=== PATIENT | male | born 1965 | race Caucasian/White ===

== ENCOUNTER 2020-06-14 10:16 | Emergency (ER) | payer OTHER ==
[~2020-06-14] VITALS: Ht 175.3 cm; Wt 95.5 kg
[2020-06-14] MEDS ORDERED: ASPIRIN 81 MG CHEW TABLET PO ONE (10:45)
[2020-06-14 11:01] LABS: BASO % 0.6 % (0.0-1.0); EOS # 0.1 10^3/uL (0.0-0.5); EOS % 1.2 % (0.0-3.0); HEMATOCRIT 48.9 % (42.0-52.0); HEMOGLOBIN 16.6 g/dl (13.5-17.5); LYMPH # 1.6 10^3/uL (1.5-5.0); MEAN CORPUSCULAR HEMOGLOBIN 31.5 pg (27.0-33.0); MEAN CORPUSCULAR HGB CONC 33.9 g/dl (32.0-36.5); MEAN CORPUSCULAR VOLUME 92.8 fl (80.0-96.0); MONO # 0.8 10^3/uL (0.0-0.8); MONO % 12.1 % (0.0-5.0); NEUTROPHILS # 3.9 10^3/uL (1.5-8.5); NEUTROPHILS % 60.8 % (36.0-66.0); PLATELET COUNT, AUTOMATED 287 10^3/uL (150-450); RED BLOOD COUNT 5.27 10^6/uL (4.30-6.10); WHITE BLOOD COUNT 6.4 10^3/uL (4.0-10.0)
[2020-06-14 11:17] LABS: INR 0.92; PROTHROMBIN TIME 12.5 SECONDS (12.5-14.3)
[2020-06-14 11:18] LABS: PARTIAL THROMBOPLASTIN TIME 32.2 SECONDS (24.2-38.5)
--- NOTE | 2020-06-14 11:18 | REP ---
INDICATION: CHEST PAIN. COMPARISON: None. TECHNIQUE: SINGLE PORTABLE AP VIEW OF THE CHEST WAS PERFORMED. FINDINGS: THERE IS NO ACUTE INFILTRATE OR PULMONARY EDEMA. LUNGS ARE CLEAR. HEART IS NOT SIGNIFICANTLY ENLARGED. MEDIASTINAL SILHOUETTE IS UNREMARKABLE. THE VISUALIZED OSSEOUS STRUCTURES ARE INTACT. IMPRESSION: NO ACUTE PULMONARY DISEASE. <Electronically signed by Doni Miles > 06/14/20 [id number]
[2020-06-14 11:37] LABS: ALBUMIN 3.8 GM/DL (3.2-5.2); ALT/SGPT 35 U/L (12-78); BILIRUBIN,DIRECT 0.1 MG/DL (0.0-0.2); BILIRUBIN,TOTAL 0.5 MG/DL (0.2-1.0); BLOOD UREA NITROGEN 17 MG/DL (7-18); CALCIUM LEVEL 9.1 MG/DL (8.5-10.1); CARBON DIOXIDE LEVEL 28 MEQ/L (21-32); CHLORIDE LEVEL 106 MEQ/L (98-107); CK-MB VALUE MASS 1.7 NG/ML (<3.6); CPK CREATINE PHOSPHOKINASE 140 U/L (39-308); CREATININE FOR GFR 1.02 MG/DL (0.70-1.30); FREE T4 1.07 NG/DL (0.76-1.46); GLOMERULAR FILTRATION RATE > 60.0 (>56); GLUCOSE, FASTING 94 MG/DL (70-100); LIPASE 170 U/L (73-393); MB/CK RELATIVE INDEX 1.21 (< OR =4); NT-PRO BNP 36 PG/ML (<125); POTASSIUM SERUM 4.2 MEQ/L (3.5-5.1); SODIUM LEVEL 139 MEQ/L (136-145); TOTAL PROTEIN 7.3 GM/DL (6.4-8.2); TROPONIN I < 0.02 NG/ML (< 0.10)
[2020-06-14] MEDS ORDERED: ISOVUE-370 76% 100ML VIAL As Ordered ONE (11:38)
--- NOTE | 2020-06-14 12:05 | REP ---
INDICATION: chest pain - wait bun/cr. COMPARISON: Portable chest performed earlier today. TECHNIQUE: CT of the chest with IV contrast, CT pulmonary angio protocol. FINDINGS: There are no emboli in the pulmonary trunk or central pulmonary arteries. There are no emboli in the pulmonary artery lobar segment branches. There are no infiltrates or pleural effusions. There is minor dependent atelectasis in the posterior lung wharton. The thoracic aorta is unremarkable. Cardiac size is normal. There is no mediastinal, hilar or axillary lymph node enlargement. No pericardial effusion. The visualized upper abdominal structures are unremarkable except for splenic calcified granulomas. IMPRESSION: There are no pulmonary emboli. Splenic calcified granulomas. Otherwise, negative CT study of the chest. <Electronically signed by Doni Lomeli > 06/14/20 [id number]
[2020-06-14 15:50] LABS: CK-MB VALUE MASS 1.3 NG/ML (<3.6); CPK CREATINE PHOSPHOKINASE 116 U/L (39-308); MB/CK RELATIVE INDEX 1.12 (< OR =4); TROPONIN I < 0.02 NG/ML (< 0.10)
[2020-06-14] MEDS ORDERED: ECOT81TA5 PO (16:13)
[2020-06-14 16:15] VITALS: BP 117/75
--- NOTE | 2020-06-14 18:16 | ECGEPIP ---
[facility] - ED Test Date: 2020-06-14 Pat Name: ROXI PEOPLES Department: Room: - Gender: Male Shipping Room Supervisor: alesia : 1965 Requested By: Evaristo Lombardi Order Number: [id number] Reading MD: Evaristo Lombardi Measurements Intervals [place] Rate: 62 P: 30 CA: 169 QRS: 39 QRSD: 113 T: 39 QT: 417 QTc: 424 Interpretive Statements SINUS RHYTHM MODERATE INTRAVENTRICULAR CONDUCTION DELAY NONSPECIFIC ST T WAVE CHANGES DELAYED R WAVE PROGRESSION NO PRIOR ECG FOR COMPARISON Electronically Signed on 06-14-2020 18:16:04 EST by Evaristo Lombardi
--- NOTE | 2020-06-14 19:32 | ECGEPIP ---
[facility] - ED Test Date: 2020-06-14 Pat Name: ROXI PEOPLES Department: Room: - Gender: Male Casting Operator: timmy : 1965 Requested By: Evaristo Lombardi Order Number: [id number] Reading MD: Evaristo Lombardi Measurements Intervals [place] Rate: 55 P: 32 MO: 185 QRS: 39 QRSD: 109 T: 46 QT: 447 QTc: 431 Interpretive Statements SINUS BRADYCARDIA DELAYED R WAVE PROGRESSION NONSPECIFIC ST T WAVE CHANGES 06/14/20 RATE DECREASED Electronically Signed on 06-14-2020 19:32:21 EST by Evaristo Lombardi
== END 2020-06-14 16:35 | disposition home or self-care (01) ==
LOC: M ED 10:16
DX: R07.89 Other chest pain (principal); R00.1 Bradycardia, unspecified
CPT/HCPCS: 71045; 71275; 80048; 80076; 82550; 82553; 83690; 83880; 84439; 84443; 85025; 85610; 85730; 93005; 93041; 94760; 99285; Q9967

== ENCOUNTER → 2020-07-10 | Outpatient (POV) | payer OTHER ==
[~2020-07-10] MED LIST: ECOT81TA5 PO
--- NOTE | 2020-07-11 15:36 | IRCOV ---
[facility] IR Consult Office Visit IR Consult Office Visit DATE: Jul 10, 2020 Patient agreed to this telephone consultation. I spent 30 minutes reviewing patient's records, imaging and talking to the patient. REASON FOR CONSULTATION/CHIEF COMPLAINT: Lower extremity swelling and discomfort. HISTORY OF PRESENT ILLNESS: 55-year-old male complains of left greater than right leg discomfort and pain. He states this is worse at the end of his shift for which he has to be on his feet all day. By the end of his shift, his left greater than right leg is swollen and incredibly painful to where he can't even walk to the car. He does use a compression stocking on the left leg which helps somewhat. He states the swelling goes down by the morning. He symptoms are relieved by leg elevation and rest. He is a nonsmoker. He denies calf claudication. He denies rest pain. He denies chest pain, shortness of breath, paroxysmal nocturnal dyspnea or orthopnea. ALLERGIES: Please see below. HOME MEDICATIONS: Please see below. PAST MEDICAL HISTORY: Varicose veins PAST SURGICAL HISTORY: Left inguinal hernia repair FAMILY HISTORY: Noncontributory SOCIAL HISTORY: Nonsmoker. Denies alcohol or drugs. REVIEW OF SYSTEMS: Otherwise negative. PHYSICAL EXAMINATION: No video on patient side. LABORATORY DATA: 06/14/2020 hemoglobin 16.6 hematocrit 48.9 WBC 6.4 platelets 287 sodium 139 potassium 4.2 BUN 17 creatinine 1.02 INR 0.9 Imaging: I personally reviewed the left lower extremity reflux ultrasound performed in February 2017. Dilated left greater saphenous vein with reflux. 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 This is amenable to EVLT therapy. We discussed the risks and benefits of the procedure and patient would like to proceed. We have scheduled the patient for left lower extremity EVLT therapy. Thank you for this referral. Cc Dr. Praneeth Fernando Allergies Coded Allergies: No Known Allergies (Unverified , 06/14/20) Home Medications Scheduled Aspirin (Ecotrin), 81 MG PO DAILY MARYSOL MONTOYA MD Jul 11, 2020 15:36
== END ==
LOC: M TMIRPOV 13:48
PROVIDERS: ATTEND Radiology Diagnostic Radiology
DX: M79.604 Pain in right leg (principal); M79.605 Pain in left leg; R60.0 Localized edema